=== PATIENT | female | born 1980 | race Caucasian/White ===

== ENCOUNTER 2019-05-01 21:10 | Emergency (ER) | payer OTHER ==
[2019-05-01] MEDS ORDERED: TETRACAINE HCL 0.5% OPH SOLN 4 ML OS ONE (23:12)
--- NOTE | 2019-05-01 23:12 | ER Document Report ---
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 Patient states that she does wear contact lenses, but was able to get it out. No fever. I have treated and performed a rapid initial assessment of this patient. A comprehensive ED assessment and evaluation of the patient, analysis of test results and completion of medical decision making process will be conducted by additional ED providers. Patient will be placed in the eye wash and then tetracaine applied thereafter until we can get her room for further evaluation and eye exam. PHYSICAL EXAMINATION: GENERAL: Well-appearing, well-nourished and in no acute distress. A&Ox4. Answers questions appropriately. Left eye: Patient has tearing and redness throughout her conjunctiva. Pupils otherwise PERRLA, EOMI bilaterally. Physical Exam - Vital signs Vitals: Temp Pulse Resp BP Pulse Ox 97.8 F 62 18 130/74 H 100 05/01/19 21:35 05/01/19 21:35 05/01/19 21:35 05/01/19 21:35 05/01/19 21:35 Course - Vital Signs Vital signs: Temp Pulse Resp BP Pulse Ox 97.8 F 62 18 130/74 H 100 05/01/19 21:35 05/01/19 21:35 05/01/19 21:35 05/01/19 21:35 05/01/19 21:35
--- NOTE | 2019-05-02 01:40 | RADIOLOGY REPORT (SQ) ---
CT face and orbits without contrast on 05/02/2019 at 1:19 AM CLINICAL INDICATION: Trauma, left eye pain TECHNIQUE: Multiple axial images are obtained throughout the face/orbits without the administration of contrast. Sagittal and coronal reformatted images are also performed and reviewed. This exam was performed according to our departmental dose-optimization program, which includes automated exposure control, adjustment of the mA and/or kV according to patient size and/or use of iterative reconstruction technique. Total DLP is 349.5 mGy*cm. COMPARISON: None FINDINGS: There is nasal septal deviation to the right. There is trace fluid in the left maxillary sinus. Paranasal sinuses are otherwise clear. Reformatted images reveal a normal appearance of the orbital floors and orbital roofs. There are no acute fracture lines. Marjorie bullosa is noted in the left middle turbinate. No other bony or soft tissue abnormality is noted. IMPRESSION: No acute fracture.
--- NOTE | 2019-05-02 02:56 | ER Document Report ---
ED Eye Complaint - General Chief Complaint: Chemical Exposure in Eye Stated Complaint: LEFT EYE PAIN Time Seen by Provider: 05/01/19 23:07 Primary Care Provider: JOSIAH QUESADA DO [ACTIVE STAFF] - Follow up as needed Mode of Arrival: Ambulatory Information source: Patient Notes: 39-year-old woman presents to the emergency department with a history of accidentally squirted in the left eye with a laundry detergent pod. Sodium carbonate based detergent, she flushed the eye at home, complains of irritation visual acuity is intact. She complains of pain discomfort. TRAVEL OUTSIDE OF THE [place] IN LAST 30 DAYS: No - Related Data Allergies/Adverse Reactions: amoxicillin [From Augmentin] Allergy (Verified 05/01/19 23:58) clavulanic acid [From Augmentin] Allergy (Verified 05/01/19 23:58) Home Medications: BCP Past Medical History - Social History Smoking Status: Never Smoker Family History: Reviewed & Not Pertinent Patient has suicidal ideation: No Patient has homicidal ideation: No Review of Systems - Review of Systems Notes: REVIEW OF SYSTEMS GENERAL: Negative for any nausea, vomiting, fevers, chills, or weight loss. NEUROLOGIC: Negative for any blurry vision, blind spots, double vision, facial asymmetry, dysphagia, dysarthria, hemiparesis, hemisensory deficits, vertigo, ataxia. HEENT: + Left eye irritation and redness rhinitis. CARDIAC: Negative for any chest pain, dyspnea on exertion, paroxysmal nocturnal dyspnea, peripheral edema. PULMONARY: Negative for any shortness of breath, wheezing, COPD, or TB exposure. GASTROINTESTINAL: Negative for any abdominal pain, nausea, vomiting, bright red blood per rectum, melena. GENITOURINARY: Negative for any dysuria, hematuria, incontinence. INTEGUMENTARY: Negative for any rashes, cuts, insect bites. RHEUMATOLOGIC: Negative for any joint pains, photosensitive rashes, history of vasculitis or kidney problems. HEMATOLOGIC: Negative for any abnormal bruising, frequent infections or bleeding. Physical Exam - Vital signs Vitals: Temp Pulse Resp BP Pulse Ox 97.8 F 62 18 130/74 H 100 05/01/19 21:35 05/01/19 21:35 05/01/19 21:35 05/01/19 21:35 05/01/19 21:35 - Notes Notes: Reviewed vital signs and nursing note as charted by RN. CONSTITUTIONAL: Well-appearing, well-nourished; female in mild distress secondary to left eye pain HEAD: Normocephalic; atraumatic; No swelling EYES: PERRL; left eye with EOMI intact, erythematous, injected sclera and conjunctiva, pupil reactive and visual acuity intact. Fluorescein stain, no ulcers and negative uptake. + Swelling of the upper lid left eye. ENT: External ears without lesions; External auditory canal is patent Pharynx without erythema or lesions, no tonsillar hypertrophy, airway patent, mucous membranes pink and moist NECK: Supple, no cervical lymphadenopathy, no masses CARD: Regular rate and rhythm; no murmurs, no rubs, no gallops, capillary refill < 2 seconds, symmetric pulses RESP: Respiratory rate and effort are normal. ABD/GI: Normal bowel sounds; non-distended; soft, non-tender, no rebound, no guarding, no palpable organomegaly EXT: Normal ROM in all joints; non-tender to palpation; no effusions, no edema SKIN: Normal NEURO: No facial asymmetry; Moves all extremities equally; Motor and sensory function intact - HEENT Visual acuity- Right eye: 20/20 Visual acuity- Left eye: 20/200 Corrective lenses worn: Yes - right eye has contact, left does not. Course - Re-evaluation Re-evalutation: 05/02/19 02:56 Franko lens was placed and the patient's eye was irritated copiously, CT scan of the orbit globe intact, no bony injury. Patient is more comfortable after irrigation and has good visual acuity. She is being discharged home with Tylenol No. 3 for pain, erythromycin ophthalmic and follow-up with her eye doctor on Saturday if she is not back to normal. Patient and her family are in agreement with this plan and will follow-up as directed. - Vital Signs Vital signs: Temp Pulse Resp BP Pulse Ox 98.1 F 62 16 110/63 100 05/02/19 03:10 05/02/19 03:10 05/02/19 03:10 05/02/19 03:10 05/02/19 03:10 Discharge - Discharge Clinical Impression: Chemical conjunctivitis of left eye, Swelling of left upper eyelid Condition: Good Disposition: HOME, SELF-CARE Instructions: Chemical in the Eye ([facility]) Additional Instructions: Follow-up with forestry support specialist on Saturday if needed. Prescriptions: Acetaminophen with Codeine [Tylenol #3 Tablet] 1 each PO Q4HP PRN #10 tablet PRN Reason: Gentamicin Sulfate [Genoptic] 2 drop LFT_EYE 5XD #7 drops Referrals: JOSIAH QUESADA DO [ACTIVE STAFF] - Follow up as needed
[2019-05-02 03:11] VITALS: BP 110/63
== END 2019-05-02 03:11 | disposition home or self-care (01) ==
LOC: ER 21:10
DX: T55.1X1A Toxic effect of detergents, accidental (unintentional), initial encounter (principal); H10.212 Acute toxic conjunctivitis, left eye; H57.12 Ocular pain, left eye; J34.89 Other specified disorders of nose and nasal sinuses; Z88.0 Allergy status to penicillin
CPT/HCPCS: 70480; J3490; 99283